=== PATIENT | female | born 1940 | race Caucasian/White ===

== ENCOUNTER 2017-07-04 09:34 | Emergency (ER) | payer MEDICARE, OTHER | END 2017-07-04 10:55 | disposition home or self-care (01) | LOC: E/R 09:34 | DX: J02.9 Acute pharyngitis, unspecified (principal); J20.9 Acute bronchitis, unspecified; J45.909 Unspecified asthma, uncomplicated; I10 Essential (primary) hypertension; F17.210 Nicotine dependence, cigarettes, uncomplicated | CPT/HCPCS: 99284 ==

== ENCOUNTER 2018-02-04 10:53 | Emergency (ER) | payer MEDICARE, OTHER ==
[2018-02-04] MEDS: ACETAMINOPHEN 500 MG TAB PO (11:45)
== END 2018-02-04 12:38 | disposition home or self-care (01) ==
LOC: FTE 10:53
DX: J06.9 Acute upper respiratory infection, unspecified (principal); I10 Essential (primary) hypertension; J45.909 Unspecified asthma, uncomplicated; Z85.841 Personal history of malignant neoplasm of brain
CPT/HCPCS: 71045; 99283-25